=== PATIENT | female | born 1985 | race Caucasian/White ===

== ENCOUNTER 2018-08-12 21:27 | Emergency (ER) | payer OTHER ==
[2018-08-12 21:49] VITALS: BP 161/101; TEMP 97.6; O2SAT 99
[2018-08-12] MEDS ORDERED: LIDOCAINE 1% 10 ML VIAL INJ ONE (21:59)
[2018-08-12] MEDS ORDERED: diazePAM 2 MG TAB PO ONE (22:09)
--- NOTE | 2018-08-12 22:11 | ED.PDOC ---
History of Present Illness - General Chief Complaint: Back Pain or Injury Stated Complaint: upper back spasms Time Seen by Provider: 08/12/18 21:40 Source: patient, family Exam Limitations: no limitations - History of Present Illness Initial Comments: patient comes in today with severe back spasms along the etiology scapular area. Patient has had these episodes for more than 6 years. At first she was getting them several times a year but currently the last episode was a year ago. Patient states originally she was prescribed Flexeril for it but that did not work well and she eventually wound up needing Valium. Patient currently does not have a prescription and she has not had an episode in some time. This episode happened while sitting at the dinner table. She states the pain starts in the scapular area and radiates around to the side of the shoulder blade to her chest wall. Pain is worse with movement. She's had no abdominal pain, nausea, vomiting, distention, or bloating. In the past workup has been negative. Patient has had no trauma or injury. She is otherwise healthy. Her has had a vasectomy and she is currently finishing her menses. Timing/Duration: 4-6 hours Quality/Severity: severe, radiation Back Pain Location: other - medial scapular line Method of Injury/Prior Injury: unknown Improving Factors: nothing Worsening Factors: movement Associated Symptoms: muscle spasms Allergies/Adverse Reactions: Allergies NO KNOWN ALLERGY Allergy (Verified 08/12/18 21:40) Review of Systems - Review of Systems Constitutional: States: no symptoms reported. Denies: chills, diaphoresis, fever EENTM: States: no symptoms reported Respiratory: States: no symptoms reported. Denies: cough, short of breath Cardiology: States: no symptoms reported. Denies: chest pain, palpitations Gastrointestinal/Abdominal: States: no symptoms reported. Denies: abdominal pain, diarrhea, nausea, vomiting Musculoskeletal: States: see HPI, back pain Past Medical History (General) - Patient Medical History Hx Asthma: No Hx Hypertension: No Hx Diabetes: No Hx Renal Disease: No Surgical History: no surgical history - Vaccination History Hx Tetanus, Diphtheria Vaccination: No Hx Influenza Vaccination: Yes Hx Pneumococcal Vaccination: No - Social History Hx Tobacco Use: Yes Hx Alcohol Use: Yes Family Medical History - Family History Mother Family History: Unknown Physical Exam - Physical Exam General Appearance: Anxious, Obvious distress Eyes, Ears, Nose, Throat Exam: PERRL/EOMI, normal ENT inspection Neck Exam: non-tender, full range of motion, normal alignment Cardiovascular/Respiratory: regular rate, rhythm, no M/R/G, normal peripheral pulses Gastrointestinal/Abdominal: normal bowel sounds, non tender, soft Back Exam: normal inspection, other - TTP with reproduction of the pain on bilateral medial scapular boders at about T4 level Progress - Progress Progress: 08/12/18 22:12 patient had trigger points with R>>L but both very painful. After consent obtained 1 cc of 1% lidocaine injected into areas with good relief of pain. We will give her one dose of valium here and she should go home and rest. Follow up on Wednesday if any symptom remains. Departure - Departure Clinical Impression: Muscle spasm Trigger point of shoulder region Qualifiers: Laterality: unspecified laterality Qualified Code(s): M25.519 - Pain in unspecified shoulder Disposition: Discharge to Home or Self Care Condition: Good Departure Forms: ED Discharge - Pt. Copy, Patient Portal Self Enrollment Additional Instructions: return to ER for severe pain. Follow up with PCP on Wednesday if any symptoms remain
== END 2018-08-12 22:21 | disposition home or self-care (01) ==
LOC: ER 21:27
DX: M62.830 Muscle spasm of back (principal); M25.511 Pain in right shoulder; M25.512 Pain in left shoulder; Z87.891 Personal history of nicotine dependence

== ENCOUNTER 2019-03-20 20:44 | Emergency (ER) | payer OTHER ==
[2019-03-20] MEDS ORDERED: MONTELUKAST 10 MG TAB PO ONE (20:49)
[2019-03-20] MEDS ORDERED: diphenhydrAMINE HCL 50 MG/ML VIAL IM ONE (20:49)
[2019-03-20 20:55] VITALS: TEMP 98.9
[2019-03-20] MEDS ORDERED: EPINEPHrine HCL AMP 1 MG/ML AMP SUBCU ONE (21:34)
[2019-03-20 21:58] VITALS: O2SAT 99
[2019-03-20] MEDS ORDERED: predniSONE 20 MG TAB PO ONE (22:24)
--- NOTE | 2019-03-20 22:25 | ED.PDOC ---
History of Present Illness - General Chief Complaint: Allergic Reaction Stated Complaint: left foot ant bite causing rash and itching Time Seen by Provider: 03/20/19 20:49 Source: patient Exam Limitations: no limitations - History of Present Illness Initial Comments: The patient is a 34-year-old female presenting with a significant allergic reaction secondary to a fire ant bite. She has had a significant reaction in the past. She is having hives as well as swelling of her facial features. She is not having difficulty breathing yet. She does feel very anxious. Her blood pressure is significantly elevated. She did take 20 mg of prednisone and 50 mg of Benadryl approximately 20 minutes prior to arrival. Timing/Duration: 1/2 hour Severity: moderate Improving Factors: nothing Worsening Factors: nothing Associated Symptoms: cough Allergies/Adverse Reactions: Allergies NO KNOWN ALLERGY Allergy (Verified 03/20/19 20:55) Home Medications: Ambulatory Orders NK 03/20/19 Review of Systems - Review of Systems Constitutional: States: no symptoms reported EENTM: States: nose congestion Respiratory: States: cough - very mild Cardiology: States: no symptoms reported Gastrointestinal/Abdominal: States: no symptoms reported Genitourinary: States: no symptoms reported Musculoskeletal: States: no symptoms reported Skin: States: see HPI Neurological: States: anxiety Endocrine: States: no symptoms reported All other Systems: No Change from Baseline Past Medical History (General) - Patient Medical History Hx Seizures: No Hx Stroke: No Hx Dementia: No Hx Asthma: No Hx of COPD: No Hx Cardiac Disorders: No Hx Congestive Heart Failure: No Hx Pacemaker: No Hx Hypertension: No Hx Thyroid Disease: No Hx Diabetes: No Hx Gastroesophageal Reflux: No Hx Renal Disease: No Hx Cancer: No Hx of HIV: No Hx Hepatitis C: No Hx MRSA: No Surgical History: no surgical history - Vaccination History Hx Tetanus, Diphtheria Vaccination: Yes Hx Influenza Vaccination: Yes Hx Pneumococcal Vaccination: No - Social History Hx Tobacco Use: Yes Hx Chewing Tobacco Use: No Hx Alcohol Use: Yes - occasional Hx Substance Use: No Hx Substance Use Treatment: No Hx Depression: No Hx Physical Abuse: No Hx Emotional Abuse: No Hx Suspected Abuse: No - Female History Patient : No Family Medical History - Family History Mother Family History: Unknown Physical Exam - Physical Exam General Appearance: Alert, Anxious, Other - the patient is itching all over. Eye Exam: bilateral normal Ears, Nose, Throat: hearing grossly normal, nasal congestion - nares are boggy. Oropharynx is clear. Neck: full range of motion, supple Respiratory: lungs clear, normal breath sounds, no respiratory distress, no accessory muscle use Cardiovascular/Chest: normal peripheral pulses, no edema, tachycardia Peripheral Pulses: radial,right: 2+, radial,left: 2+ Gastrointestinal/Abdominal: non tender, soft Rectal Exam: deferred Back Exam: no CVA tenderness, no vertebral tenderness Extremity: non-tender, no pedal edema, no calf tenderness, normal capillary refill Neurologic: reinforcing bar setter II-XII nml as tested, no motor/sensory deficits, alert, oriented x 3 Skin Exam: other - significant hives Comments: Vital Signs - 24 hr 03/20/19 03/20/19 20:45 21:54 Temperature 98.9 F Pulse Rate [ 124 H 90 monitor] Respiratory 20 20 Rate Blood Pressure 136/112 106/77 [Left Arm] O2 Sat by Pulse 100 99 Oximetry Progress - Progress Progress: 03/20/19 22:26 the patient's a 34-year-old female presenting to the emergency room secondary to allergic reaction to an ant bite. The patient was having a poor incomplete response to prednisone and Benadryl so she was given 0.2 mg of epinephrine subcutaneously. This did help to break over the reaction. No respiratory symptoms at this point but her reaction to the ant bites are escalating. She is going to be written for prednisone for 40 mg to use at onset of any reaction and she should also take 50 mg of oral Benadryl and she will also be written for an epinephrine pen in case of anaphylaxis. She should also see an medical dermatologist to start receiving injections for desensitization. ER warnings were given. Vital signs stabilized. Departure - Departure Clinical Impression: Urticaria Insect bites Qualifiers: Encounter type: initial encounter Site of insect bite: foot Laterality: left Qualified Code(s): S90.862A - Insect bite (nonvenomous), left foot, initial encounter; W57.XXXA - Bitten or stung by nonvenomous insect and other nonvenomous arthropods, initial encounter Disposition: Discharge to Home or Self Care Condition: Fair Departure Forms: ED Discharge - Pt. Copy, Patient Portal Self Enrollment Instructions: Hives (DC) Diet: regular diet Activity: increase activity as tolerated Home Medications: Ambulatory Orders NK 03/20/19 Additional Instructions: the patient's a 34-year-old female presenting to the emergency room secondary to allergic reaction to an ant bite. The patient was having a poor incomplete response to prednisone and Benadryl so she was given 0.2 mg of epinephrine subcutaneously. This did help to break over the reaction. No respiratory symptoms at this point but her reaction to the ant bites are escalating. She is going to be written for prednisone for 40 mg to use at onset of any reaction and she should also take 50 mg of oral Benadryl and she will also be written for an epinephrine pen in case of anaphylaxis. She should also see an medical dermatologist to start receiving injections for desensitization. ER warnings were given. Vital signs stabilized.
[2019-03-20 22:42] VITALS: BP 138/75
== END 2019-03-20 22:41 | disposition home or self-care (01) ==
LOC: ER 20:44
DX: T63.421A Toxic effect of venom of ants, accidental (unintentional), initial encounter (principal); L50.0 Allergic urticaria; Z87.891 Personal history of nicotine dependence; Y92.9 Unspecified place or not applicable
CPT/HCPCS: J1200; J7512

== ENCOUNTER 2019-09-09 14:26 | Emergency (ER) | payer OTHER ==
--- NOTE | 2019-09-09 14:46 | ED.PDOC ---
History of Present Illness - General Chief Complaint: GI Problem Stated Complaint: Rectal pain Time Seen by Provider: 09/09/19 14:34 Information Source: patient, RN notes reviewed, Vital Signs reviewed Exam Limitations: no limitations Additional Information: this is a 34-year-old female who presents today with complaints of rectal pain. She has had pain for 1 day. She states that her diet has changed in that she has been doing a [place] diet recently. Typically she was having bowel movements twice a day and they have slowed down. 2 days ago she did not have a bowel movement for 2 days and then yesterday she had a large bowel movement that was hard and created rectal pain. Since then she has had rectal pain. She denies having any bleeding. She did have another bowel movement today that was softer but painful. She states that she took Metamucil today. She doesn't usually have any problems with constipation and does not usually take a stool softener. Patient denies any bleeding that she knows of. Review of Systems - Review of Systems Constitutional: States: no symptoms reported Respiratory: States: no symptoms reported Cardiology: States: no symptoms reported Gastrointestinal/Abdominal: States: constipation, other - rectal pain Genitourinary: States: no symptoms reported Musculoskeletal: States: no symptoms reported Skin: States: no symptoms reported Endocrine: States: no symptoms reported Past Medical History (General) - Patient Medical History Hx Seizures: No Hx Stroke: No Hx Dementia: No Hx Asthma: No Hx of COPD: No Hx Cardiac Disorders: No Hx Congestive Heart Failure: No Hx Pacemaker: No Hx Hypertension: No Hx Thyroid Disease: No Hx Diabetes: No Hx Gastroesophageal Reflux: No Hx Renal Disease: No Hx Cancer: No Hx of HIV: No Hx Hepatitis C: No Hx MRSA: No Surgical History: no surgical history - Vaccination History Hx Tetanus, Diphtheria Vaccination: Yes Hx Influenza Vaccination: Yes Hx Pneumococcal Vaccination: No Immunizations Up to Date: No - Social History Hx Tobacco Use: Yes Hx Chewing Tobacco Use: No Hx Alcohol Use: Yes Hx Substance Use: No Hx Substance Use Treatment: No Hx Depression: Yes Hx Physical Abuse: No Hx Emotional Abuse: No Hx Suspected Abuse: No - Female History Patient : No Family Medical History - Family History Mother Family History: Unknown Living Status: Still Living Father Living Status: Still Living Hx Family;Other: Diverticulosis Physical Exam - Physical Exam General Appearance: Alert, No apparent distress, Obese - obese, Other Gastrointestinal/Abdominal: normal bowel sounds, non tender, soft, no organomegaly, no pulsatile mass Rectal Exam: normal rectal tone, hemorrhoids - o'clock position, nonthrombosed, no fissures, no gross blood, no impaction, tenderness Neurologic: no motor/sensory deficits, alert, normal mood/affect, oriented x 3 Skin Exam: normal color, warm/dry Progress - Progress Progress: 09/09/19 15:00 MDM: External hemorrhoids, internal hemorrhoids, rectal fissure, constipation, diet modification, dehydration. Patient will have physical examination performed. We will treat as appropriate. - Results/Orders Results/Orders: Laboratory Tests 09/09/19 14:57 Stool Occult Blood Negative Departure - Departure Clinical Impression: Elevated blood pressure reading, External hemorrhoid Constipation Qualifiers: Constipation type: unspecified constipation type Qualified Code(s): K59.00 - Constipation, unspecified Time of Disposition: 15:04 Disposition: Discharge to Home or Self Care Condition: Good Departure Forms: ED Discharge - Pt. Copy, Patient Portal Self Enrollment Instructions: DI for Constipation, Hemorrhoids (DC) Prescriptions: Docusate Sodium [Colace Cap] 0 mg PO BID #60 cap Hydrocortisone 25 mg Supp [Anusol-HC Suppository] 1 ea RI TID #15 sup Home Medications: Ambulatory Orders Docusate Sodium [Colace Cap] 0 mg PO BID #60 cap 09/09/19 Fexofenadine-Pseudoephedrine [Екатерина-D 24 Hour Allergy 180-240 mg] 1 tab PO DAILY 09/09/19 Hydrocortisone 25 mg Supp [Anusol-HC Suppository] 1 ea RI TID #15 sup 09/09/19 Additional Instructions: take medications as prescribed. Drink more fluids. Stool softener with either Metamucil or Colace. May use [id number] Tucks pads as needed. Preparation H may also be used once prescription runs out. Follow-up with PCP. May need GI referral if continued discomfort.
[2019-09-09 15:20] VITALS: BP 137/82; TEMP 98.3; O2SAT 98
== END 2019-09-09 15:19 | disposition home or self-care (01) ==
LOC: ER 14:26
DX: K64.4 Residual hemorrhoidal skin tags (principal); K62.89 Other specified diseases of anus and rectum; R03.0 Elevated blood-pressure reading, without diagnosis of hypertension; F32.9 Major depressive disorder, single episode, unspecified; Z87.891 Personal history of nicotine dependence

== ENCOUNTER 2020-02-02 01:28 | Emergency (ER) | payer OTHER ==
[2020-02-02 01:42] VITALS: TEMP 97.4; O2SAT 99
[2020-02-02] MEDS ORDERED: BUPIVACAINE 0.5% 30 ML VIAL INJ ONE (01:45)
[2020-02-02] MEDS ORDERED: LIDOCAINE 2% 50 ML VIAL INJ ONE (01:45)
--- NOTE | 2020-02-02 01:58 | ED.PDOC ---
History of Present Illness - General Chief Complaint: Back Pain or Injury Stated Complaint: back muscle pain Time Seen by Provider: 02/02/20 01:45 Source: patient Exam Limitations: no limitations - History of Present Illness Initial Comments: 35 yo F who presents for upper R sided back pain onset this evening. Hx of similar sx, was told it was a muscle spasm, has flexeril at home for flare ups, took one two hours ago without relief of sx. Has had good relief with a trigger point injection in the past. Does not remember doing anything that would have flared up the sx however does have a puppy now and thinks it maybe from how she is holding it. Denies weakness, numbness, midline spine pain, ADAMES, f/c, cough, CP, SOB. Allergies/Adverse Reactions: Allergies Insect Extract Adverse Reaction (Severe, Verified 09/09/19 14:40) Pt has a sever allergy to fire ants stings Home Medications: Ambulatory Orders Docusate Sodium [Colace Cap] 0 mg PO BID #60 cap 09/09/19 Fexofenadine-Pseudoephedrine [Екатерина-D 24 Hour Allergy 180-240 mg] 1 tab PO DAILY 09/09/19 Hydrocortisone 25 mg Supp [Anusol-HC Suppository] 1 ea OR TID #15 sup 09/09/19 Review of Systems - Review of Systems Constitutional: Denies: chills, fever EENTM: States: no symptoms reported Respiratory: Denies: cough, short of breath Cardiology: Denies: chest pain, palpitations Gastrointestinal/Abdominal: States: no symptoms reported Musculoskeletal: States: back pain, muscle pain. Denies: neck pain Skin: Denies: lesions, rash Neurological: Denies: headache, numbness, weakness Hematologic/Lymphatic: Denies: easy bleeding, easy bruising Past Medical History (General) - Patient Medical History Hx Seizures: No Hx Stroke: No Hx Dementia: No Hx Asthma: No Hx of COPD: No Hx Cardiac Disorders: No Hx Congestive Heart Failure: No Hx Pacemaker: No Hx Hypertension: No Hx Thyroid Disease: No Hx Diabetes: No Hx Gastroesophageal Reflux: No Hx Renal Disease: No Hx Cancer: No Hx of HIV: No Hx Hepatitis C: No Hx MRSA: No Surgical History: no surgical history - Vaccination History Hx Tetanus, Diphtheria Vaccination: Yes Hx Influenza Vaccination: Yes Hx Pneumococcal Vaccination: No - Social History Hx Tobacco Use: No Hx Chewing Tobacco Use: No Hx Alcohol Use: Yes Hx Substance Use: No Hx Substance Use Treatment: No Hx Depression: No Feels Threatened In Home Enviroment: No Feels Threatened In a Relationship: No Hx Physical Abuse: No Hx Emotional Abuse: No Hx Suspected Abuse: No - Female History Patient is a Female of Child Bearing Age (10 -59 yrs old): Yes Patient : No - Triage Comment ED Triage Comment: The patient is standing and pacing and is in obvious discomfort and is unable to lay down. She has cramping noted betwen her shoulder blades that radiates down her back. Family Medical History - Family History Mother Family History: Unknown Living Status: Still Living Father Living Status: Still Living Hx Family;Other: Diverticulosis Physical Exam - Physical Exam General Appearance: Alert, Comfortable, No apparent distress, Well Developed, Well Nourished Neck Exam: non-tender, full range of motion, normal alignment, normal inspection Cardiovascular/Respiratory: regular rate, rhythm, no M/R/G, normal peripheral pulses Back Exam: normal inspection, no CVA tenderness, no vertebral tenderness, other - R upper thoracic paraspinal TTP Neurologic: no motor/sensory deficits, alert, normal mood/affect, oriented x 3 Skin Exam: normal color, warm/dry Progress - Progress Progress: 02/02/20 01:56 I have explained and reviewed all results with the pt. Trigger point injection performed with great improvement in sx. Pt has flexeril still left at home. I explained that emergent conditions may arise and to return to the ER for new, worsening, or any persistent conditions. I've explained the importance of f/u for recheck. All questions and concerns addressed at this time. Pt understands and agrees with plan. Pt well appearing, NAD, is stable for discharge. Radha Sánchez MD Emergency Medicine Physician Billing Number [id number] Departure - Departure Clinical Impression: Muscle spasm Time of Disposition: 01:55 Disposition: Discharge to Home or Self Care Health Concerns: condition: stable Departure Forms: ED Discharge - Pt. Copy, Patient Portal Self Enrollment Instructions: Muscle Spasms (DC) Home Medications: Ambulatory Orders Docusate Sodium [Colace Cap] 0 mg PO BID #60 cap 09/09/19 Fexofenadine-Pseudoephedrine [Екатерина-D 24 Hour Allergy 180-240 mg] 1 tab PO DAILY 09/09/19 Hydrocortisone 25 mg Supp [Anusol-HC Suppository] 1 ea OR TID #15 sup 09/09/19 Additional Instructions: Follow up [facility] As needed, if symptoms worsen Your Primary Care Physician Make appointment, two days, for follow up
[2020-02-02 02:01] VITALS: BP 148/94
== END 2020-02-02 02:01 | disposition home or self-care (01) ==
LOC: ER 01:28
DX: M62.830 Muscle spasm of back (principal)